=== PATIENT | female | born 1980 | race Caucasian/White ===

== ENCOUNTER 2024-12-13 16:14 | Outpatient (CLI) | payer OTHER ==
[2024-12-13 16:54] LABS: Hematocrit 42.4 % (34.9-44.5)
== END 2024-12-13 16:15 | disposition home or self-care (01) ==
LOC: CSHLAB 16:14
PROVIDERS: ATTEND Otolaryngology Plastic Surgery within the Head & Neck
DX: Z01.812 Encounter for preprocedural laboratory examination (principal); H65.23 Chronic serous otitis media, bilateral
CPT/HCPCS: 85014

== ENCOUNTER 2024-12-16 05:50 | Day surgery (SDC) | payer OTHER ==
[2024-12-13 16:33] VITALS: BMI 53.8
[2024-12-16] MEDS ORDERED: Sevoflurane 250 ML INH ANEST BOTTLE ONE (06:18)
[2024-12-16] MEDS ORDERED: oFLOXacin 0.3% Opth 5 ML BOT ONE (06:18)
[2024-12-16] MEDS ORDERED: Ondansetron PF 4 MG/2 ML Vial ONE (06:36)
[2024-12-16] MEDS ORDERED: fentaNYL 50 mcg/mL 1 mL Vial ONE (06:36)
[2024-12-16] MEDS ORDERED: Lidocaine 1% PF 5 ML VIAL ONE (06:36)
[2024-12-16] MEDS ORDERED: Dexamethasone 4 mg/ml Vial ONE (06:36)
[2024-12-16] MEDS ORDERED: PROPOFOL 20 ML ONE (06:36)
[2024-12-16] MEDS ORDERED: Dexmedetomidine 200 MCG/2 ML VIAL ONE (06:36)
[2024-12-16] MEDS ORDERED: Midazolam HCl 2 mg/2 ml Vial ONE (06:36)
== END 2024-12-16 08:35 | disposition home or self-care (01) ==
LOC: CSHSDC 05:50
PROVIDERS: ATTEND Otolaryngology Plastic Surgery within the Head & Neck
PROC: 099670Z Drainage of Left Middle Ear with Drainage Device, Via Natural or Artificial Opening (ICD-10-PCS; principal; 2024-12-16)
PROC: 099570Z Drainage of Right Middle Ear with Drainage Device, Via Natural or Artificial Opening (ICD-10-PCS; principal; 2024-12-16)
DX: H65.23 Chronic serous otitis media, bilateral (principal); Q90.9 Down syndrome, unspecified; G47.33 Obstructive sleep apnea (adult) (pediatric); Z90.710 Acquired absence of both cervix and uterus; Z90.10 Acquired absence of unspecified breast and nipple; Z90.89 Acquired absence of other organs; Z90.721 Acquired absence of ovaries, unilateral; Z98.890 Other specified postprocedural states; Z79.899 Other long term (current) drug therapy; Z88.2 Allergy status to sulfonamides
CPT/HCPCS: C1889; J1100; J2250; J2405; J2704; J3010